=== PATIENT | female | born 1970 | race Caucasian/White ===

== ENCOUNTER 2021-10-14 15:07 | Outpatient (CLI) | payer BC, SELFPAY ==
--- NOTE | 2021-10-14 15:20 | CRLHL7_ITS ---
For Patients: As a result of the Century Cures Act, medical imaging exams and procedure reports are released immediately into your electronic medical record. You may view this report before your referring provider. If you have questions, please contact your health care provider. BILATERAL SCREENING MAMMOGRAM WITH COMPUTER-AIDED DETECTION TECHNIQUE: CC and MLO views were obtained. These mammographic images have been obtained using full-field digital technique. These mammographic images were interpreted with the benefit of computer-aided detection. COMPARISON FILM: 04/12/16, 04/07/16. FINDINGS: The breasts are heterogeneously dense, which may obscure small masses IMPRESSION: There is no radiographic evidence for malignancy. ASSESSMENT: BI-RADS Category 2: Benign RECOMMENDATION: Routine screening mammogram in 1 year. A lay language report of this examination will be provided to the patient. Maksim Victor M.D. Diagnostic Radiologist [email or web address] Transcribed: 3:55 pm DW/Dictated by: Maksim Victor MD @ 10/15/2021 8:34:00 AM (Electronically Signed)
== END 2021-10-14 15:08 | disposition home or self-care (01) ==
LOC: MAMMO 15:07
PROVIDERS: PCP Family Medicine; Visit Provider Family Medicine
DX: Z12.31 Encounter for screening mammogram for malignant neoplasm of breast (principal); R92.2 Inconclusive mammogram
CPT/HCPCS: 77067

== ENCOUNTER 2022-06-03 11:41 | Emergency (ER) | payer BC, SELFPAY ==
[2022-06-03 11:46] VITALS: BP 148/95; PULSE 85; RESP 18; TEMP 36.4; O2SAT 98
--- NOTE | 2022-06-03 12:29 | CRLHL7_ITS ---
For Patients: As a result of the Century Cures Act, medical imaging exams and procedure reports are released immediately into your electronic medical record. You may view this report before your referring provider. If you have questions, please contact your health care provider. INDICATION: Left-sided radicular pain. TECHNIQUE: Cervical spine 3 view. COMPARISON: None. FINDINGS: Bones: Alignment is normal. No fractures or significant bone lesions. Joints: Disc spaces and facets are unremarkable. Soft tissues: Unremarkable. Dictated by Maverick Menendez MD @ 06/03/2022 1:52:41 PM (Electronically Signed)
--- NOTE | 2022-06-03 12:31 | CRLHL7_ITS ---
For Patients: As a result of the Cures Act, medical imaging exams and procedure reports are released immediately into your electronic medical record. You may view this report before your referring provider. If you have questions, please contact your health care provider. INDICATION: Left shoulder pain. TECHNIQUE: Chest 2 views. COMPARISON: None. FINDINGS: Cardiovascular and mediastinum: Heart size and vasculature are normal in caliber and appearance. Lungs and pleural spaces: Lungs are clear. No sign of infiltrate or mass. No sign of pleural effusion. No pneumothorax. Bones and soft tissues: No significant findings. IMPRESSION: No acute or significant findings. Dictated by Maverick Menendez MD @ 06/03/2022 1:53:10 PM (Electronically Signed)
--- NOTE | 2022-06-03 17:25 | ED_ITS ---
HPI - Extremity Injury (Upper) General Date Seen: 06/03/22 Chief Complaint: Extremity Pain/Injury, Upper Stated Complaint: LT shoulder and arm pain Time Seen by Provider: 06/03/22 12:10 Source: patient Mode of arrival: ambulatory Limitations: no limitations History of Present Illness HPI narrative: Patient is a very nice 52-year-old female who was talking on the phone, with her right elbow flex, and tight to her body, she noted she had some pain in her left shoulder, along with some numbness of came down her right hand, to her 1st and 2nd fingers over the dorsum of her hand, she is able to extend her hand, and pain in the shoulder improved over approximately a 5 minute period, and then the numbness and tingling improved in her hand. She called the nurse's line, where they told her this may be a heart attack and she came in here to be seen. She tells me she is feeling fine now, she has no pain in her neck, she moves her neck otherwise normal there is no history of falls or injury fevers chills or sweats weight loss or personal history of malignancy, she has no personal history of cancer, but there is a history in the family, of her father dying at age 66 suddenly which they think is from a heart issue. She has had lifetime hyperlipidemia, but is not on currently a medication she is a nonsmoker lifetime does not use any cocaine or illicit substances, no history of hypertension or diabetes. complaint: injury to: left Onset (ago): hour(s) Related Data Home Medications Medication Instructions Recorded Confirmed No Known Home Medications 06/03/22 06/03/22 Allergies Allergy/AdvReac Type Severity Reaction Status Date / Time No Known Allergies Allergy Unknown Uncoded 10/21/21 10:25 Review of Systems Status of ROS: Reports: 10 or more systems reviewed and unremarkable except as noted in History and below [facility] Medical History History of vaginal delivery Surgical History History of third molar tooth extraction ?K08.409 - Partial loss of teeth, unspecified cause, unspecified class (ICD- 10) Family History Sister Neurofibromatosis Father Prostate cancer Mother Thyroid cancer Social History Narrative: Does Not drink alcohol Exercises regularly 4 kids ,homemaker Non-smoker Exam Narrative: Exam Narrative: Patient is seen in room 7 she is in no apparent distress his pupils are equal round reactive to light there is no scleral icterus redness TMs are normal oropharynx normal neck is supple full range of motion in flexion extension lateral flexion and cervical rotation there is no palpable tenderness noted of her neck, her shoulders have full range of motion bilaterally and she has absence of rotator cuff signs bilaterally in her shoulders her her left arm has good range of motion of her biceps triceps, wrist dorsiflexion finger of abduction, nc manager strengths, 1st finger thumb opposition are all 5/5 power also. Sensation is normal over all the signature dermatomal areas and her reflexes are normal in her biceps triceps and brachioradialis. Skin is normal with no rashes, there is no edema, negative Homans sign. Chest is good air entry bilaterally with no wheezing crackles noted, easy respirations no splinting, no tenderness to palpation over chest her heart sounds are normal no clicks murmurs or gallops, her abdomen is soft there is no guarding no organomegaly no tenderness, her extremities are all normal, with no pitting edema negative Homans signs in her legs, and normal pulses. Neurologically she is intact in upper lower extremities with normal proximal and distal power, her cranial nerves 3-12 are normal. Const: Vital Signs, click to edit/add: Vital Signs - 24 hr 06/03/22 11:46 Temperature 97.6 F Pulse Rate [Pulse Oximeter] 85 Respiratory Rate 18 Blood Pressure [Ri ght Upper Arm] 148/95 H Pulse Oximetry 98 Oxygen Delivery Me thod Room Air Documenting provider has reviewed patient's vital signs: yes Course Course Hospital Course: Discussed with the patient troponins are normal x2, or EKG is normal chest x-ray is normal, I think at this point this is more likely neurologic, she may have had a bit of neurapraxia occur, with her elbow flexed, there is no evidence of a cervical radiculopathy least ongoing, and she was very comfortable with going home and watching this she should re-presented to the hospital, I think there is a low likelihood this is cardiovascular, as her heart score was 0. Vital Signs Vital signs: Initial Vital Signs Temperature 97.6 F 06/03/22 11:46 Temperature Source Temporal Artery Scan 06/03/22 11:46 Pulse Rate 85 06/03/22 11:46 Pulse Rhythm Regular 06/03/22 11:46 Respiratory Rate 18 06/03/22 11:46 Blood Pressure 148/95 H 06/03/22 11:46 Blood Pressure Mean 112 06/03/22 11:46 Blood Pressure Position Sitting 06/03/22 11:46 Pulse Oximetry 98 06/03/22 11:46 Oxygen Delivery Method Room Air 06/03/22 11:46 Vital Signs Temperature 97.6 F 06/03/22 11:46 Pulse Rate 85 06/03/22 11:46 Respiratory Rate 18 06/03/22 11:46 Blood Pressure 148/95 H 06/03/22 11:46 Pulse Oximetry 98 06/03/22 11:46 Oxygen Delivery Method Room Air 06/03/22 11:46 Temperature 97.6 F 06/03/22 11:46 Pulse Rate 85 06/03/22 11:46 Respiratory Rate 18 06/03/22 11:46 Blood Pressure 148/95 H 06/03/22 11:46 Pulse Oximetry 98 06/03/22 11:46 Oxygen Delivery Method Room Air 06/03/22 11:46 MDM - Extremity Injury (Upper) MDM Narrative Medical decision making narrative: During the evaluation of this patient I considered multiple differential diagnosis is. The life-threatening differential diagnosis include coronary disease/NH, pulmonary embolism, pneumothorax, pneumonia, and aortic dissection. Other differential diagnosis included but were not limited to pericarditis, myocarditis, chest wall pain, GERD, esophageal rupture, rib fracture contusion, pleurisy, as well as other etiologies. Medical Records Attestation: I reviewed the patient's medical records. Lab Data Attestation: I reviewed the patient's lab results. Labs: Lab Results 06/03/22 06/03/22 Range/Units 12:30 15:09 POC Troponin I 0.00 L 0.00 L (0.01-0.04) ng/ml Imaging Data Chest x-ray: Radiologist's impression: atient: CHUY AUDISS Facility:?[facility] Patient ID:?[id number] Site Patient ID:?[id number]. Site :?1970 Study:?XRay Chest 2 VIEWS-06/03/2022 1:07:19 PM Ordering Physician:?Annabel Nguyễn Final Report: INDICATION: Left shoulder pain. TECHNIQUE: Chest 2 views. COMPARISON: None. FINDINGS: Cardiovascular and mediastinum: Heart size and vasculature are normal in caliber and appearance. Lungs and pleural spaces: Lungs are clear. No sign of infiltrate or mass. No sign of pleural effusion. No pneumothorax. Bones and soft tissues: No significant findings. IMPRESSION: No acute or significant findings. Dictated by Maverick Menendez MD @ 06/03/2022 1:53:10 PM (Electronic Signature) Patient: [facility] Facility:?[facility] Patient ID:?[id number] Site Patient ID:?[id number]. Site :?1970 Study:?XRay Chest 2 VIEWS-06/03/2022 1:07:19 PM Ordering Physician:?Annabel Nguyễn Final Report: INDICATION: Left shoulder pain. TECHNIQUE: Chest 2 views. COMPARISON: None. FINDINGS: Cardiovascular and mediastinum: Heart size and vasculature are normal in caliber and appearance. Lungs and pleural spaces: Lungs are clear. No sign of infiltrate or mass. No sign of pleural effusion. No pneumothorax. Bones and soft tissues: No significant findings. IMPRESSION: No acute or significant findings. Dictated by Maverick Menendez MD @ 06/03/2022 1:53:10 PM (Electronic Signature) Patient: [facility] Facility:?[facility] Patient ID:?[id number] Site Patient ID:?[id number]. Site :?1970 Study:?XRay Spine Cervical 3 VIEWS-06/03/2022 1:06:45 PM Ordering Physician:?Annabel Nguyễn Final Report: INDICATION: Left-sided radicular pain. TECHNIQUE: Cervical spine 3 view. COMPARISON: None. FINDINGS: Bones: Alignment is normal. No fractures or significant bone lesions. Joints: Disc spaces and facets are unremarkable. Soft tissues: Unremarkable. Dictated by Maverick Menendez MD @ 06/03/2022 1:52:41 PM (Electronic Signature) ECG Data Attestation: I personally reviewed and interpreted this ECG as follows: ECG interpretation date: 06/03/22 Interpretation: EKG showed normal sinus rhythm, no acute issues, and SD QRS and QT intervals are normal. Discharge Plan Discharge Clinical Impression: Arm pain, left Patient Disposition: Home, Self-Care Condition: Stable Instructions: Arm Pain (ED) Additional Instructions: Home, rest, I think this is just a bit of nerve issue in her left arm I do not see any evidence of a heart, or other issue ongoing here. Reassurance is given if ongoing signs and symptoms of problems then follow-up with her primary care physician, little Tylenol or ibuprofen tonight would also be reasonable. Sorry about the wait. Prescriptions: No Action No Known Home Medications Follow Up/Referrals: Cindy Nicole MD [Primary Care Provider] - Stand Alone Forms: [employer] Info Instructions
== END 2022-06-03 16:26 | disposition home or self-care (01) ==
PROVIDERS: Emergency Provider Family Medicine; PCP Family Medicine
DX: M79.602 Pain in left arm (principal)
CPT/HCPCS: 71046; 72040; 84484; 93005; 99284; 99285